=== PATIENT | male | born 1985 | race Caucasian/White ===

== ENCOUNTER → 2019-08-21 10:29 | Outpatient (CLI) | payer BC, SELFPAY ==
[2019-08-21 12:20] LABS: Absolute Lymphocyte Count 2.13 X10^3/uL (0.83-4.51); Absolute Neutrophil Count 3.4 X10^3/uL (2.0-7.7); Basophil# 0.04 X10^3/uL; Basophil% 0.6 % (0-1); Eosinophil# 0.15 X10^3/uL; Eosinophils% 2.4 % (0-5); Hematocrit 48.6 % (40-54); Lymphocyte # 2.13 X10^3/ul (4.0); Lymphocyte % 34.5 % (19-41); Mean Corp Hgb Conc 32.9 g/dL (32-36); Mean Corpuscular Hgb 31.3 pg (27.0-32.0); Mean Corpuscular Volume 94.9 fL (80-94); Mean Platelet Vol. 10.7 fl (6.2-12.0); Monocyte# 0.47 X10^3/uL; Monocyte% 7.6 % (0-10); NRBC Flagged by Analyzer 0 % (0-5); Neutrophil # 3.36 X10^3/uL (2.7-7.7); Neutrophil % 54.6 % (47-70); Platelet Count 231 K/mm3 (150-450); RBC Distribution Width CV 12.2 % (11.6-14.6); RBC Distribution Width SD 42.4 fl (35.1-43.9); Red Blood Count 5.12 M/mm3 (4.6-6.2); White Blood Count 6.2 K/mm3 (4.4-11.0)
[2019-08-21 12:38] LABS: AST(SGOT) 46 U/L (15-37); Alanine Aminotransfer ALT/SGPT 117 U/L (16-61); Albumin, Serum 3.9 g/dL (3.2-5.0); Alkaline Phosphatase 89 U/L (45-117); Anion Gap 5 (5-15); BUN 9 mg/dL (7-18); BUN/Creat Ratio 10.1 RATIO (10-20); Calcium,Total 9.2 mg/dL (8.5-10.1); Chloride 105 mmol/L (98-107); Cholesterol 209 mg/dL (200); Creatinine, Serum 0.89 mg/dL (0.70-1.30); EST Glomerular Filtration Rate 104 mL/min (>60); Est Glom Filt Rate - Afr Amer 125 mL/min (>60); Globulin 3.8 g/dL (2.2-4.2); Glucose 105 mg/dL (74-106); High Density Lipoprotein 44 mg/dL; Protein, Total 7.7 g/dL (6.4-8.2); Sodium Level 138 mmol/L (136-145); Triglycerides 138 mg/dL; Very Low Density Lipoprotein 28 mg/dL (5-40)
== END ==
PROVIDERS: PCP Family Medicine; Referring Provider Family Medicine; Visit Provider Family Medicine
DX: Z00.00 Encounter for general adult medical examination without abnormal findings (principal)
CPT/HCPCS: 36415; 80053; 80061; 85025

== ENCOUNTER → 2019-09-03 12:10 | Outpatient (CLI) | payer BC, SELFPAY | PROVIDERS: PCP Family Medicine; Referring Provider Family Medicine; Visit Provider Family Medicine | DX: G47.10 Hypersomnia, unspecified (principal); R06.83 Snoring | CPT/HCPCS: 95806 ==

== ENCOUNTER → 2019-09-19 | Outpatient (CLI) | payer BC, SELFPAY | END | disposition home or self-care (01) | PROVIDERS: PCP Family Medicine; Referring Provider Family Medicine; Visit Provider Family Medicine | DX: G47.33 Obstructive sleep apnea (adult) (pediatric) (principal) | CPT/HCPCS: 95811 ==

== ENCOUNTER → 2019-10-16 | Outpatient (CLI) | payer BC, SELFPAY | END | disposition home or self-care (01) | LOC: SL 14:19 | PROVIDERS: PCP Family Medicine; Referring Provider Family Medicine; Visit Provider Family Medicine | DX: Z46.89 Encounter for fitting and adjustment of other specified devices (principal) ==

== ENCOUNTER 2021-02-07 20:03 | Emergency (ER) | payer BC, SELFPAY ==
[2021-02-07 20:04] VITALS: BP 138/87; PULSE 110; RESP 18; TEMP 36.3; O2SAT 95; BMI 43.9
--- NOTE | 2021-02-07 20:50 | RAD_ITS ---
STUDY: X-RAY - RIGHT HAND REASON FOR EXAM: Male, 35 years old. injury TECHNIQUE: 3 view(s) of the hand. COMPARISON: None. FINDINGS: An acute oblique fracture is present through the dorsal surface and lateral side of the hamate bone with mild displacement of the small fracture fragment. Mild soft tissue swelling is also present. Small corticated ossicle seen at the base of the metacarpal bone of the thumb. Normal radiocarpal articulation. Normal distal radioulnar joint. Normal remaining visualized carpal bones. Normal carpal articulations Normal carpometacarpal articulation of the thumb. Normal second through fifth carpometacarpal joints. Normal metacarpi. Normal metacarpophalangeal joint of the thumb. Normal interphalangeal joint of the thumb. Normal proximal and distal phalanges of the thumb. Normal metacarpophalangeal joints of the second through fifth fingers. Normal proximal and distal interphalangeal joints of the second through fifth fingers. Normal phalanges of the second through fifth fingers. RAD/Hand Min 3 Views IMPRESSION: 1. An acute oblique fracture is present through the dorsal surface and lateral side of the hamate bone with mild displacement of the small fracture fragment. Electronically Signed: Keyshawn Separs MD at 22:50 EDT , Service support ,
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
== END 2021-02-07 22:20 | disposition home or self-care (01) ==
PROVIDERS: Emergency Provider Emergency Medicine; PCP Family Medicine
DX: S62.141A Displaced fracture of body of hamate [unciform] bone, right wrist, initial encounter for closed fracture (principal); W22.09XA Striking against other stationary object, initial encounter; Y93.89 Activity, other specified; Y92.89 Other specified places as the place of occurrence of the external cause; Y99.8 Other external cause status
CPT/HCPCS: 29125; 73130; 99282

== ENCOUNTER → 2021-02-16 14:39 | Outpatient (CLI) | payer BC, SELFPAY ==
[2021-02-07 20:04] VITALS: BMI 43.9
--- NOTE | 2021-02-16 14:44 | CT_ITS ---
STUDY: CT SCAN RIGHT HAND REASON FOR EXAM: Male, 35 years old. DISP FX HAMATE BONE RADIATION DOSAGE (If Supplied By Facility): CTDIvol = ( 24.58 ) mGy, DLP = ( 683.53 ) mGycm. Individualized dose optimization techniques were used for this CT.? TECHNIQUE: Axial multidetector CT scan of the right hand. Coronal and sagittal reformatted images. COMPARISON: X-ray dated 02/07/2021. FINDINGS: Acute comminuted hamate fracture (coronal images 6 through 14 series 601. Small chip fracture at the fifth metacarpal volar base (axial images 60 and 61 series 3). Tiny chip fracture at the fourth metacarpal with volar base (axial image 62 series 3). Subluxed fourth and fifth metacarpals at the fracture site (sagittal images 54 through 58 10/09/2001). No acute bone destruction. Remainder the visualized carpal bones intact. Distal radius intact. Distal ulna intact. First through third carpals intact. First through fifth digits intact. Soft tissue swelling at the hand. No active bleeding. No significant hematoma formation. CT/Extremity Upper without Contra IMPRESSION: Acute comminuted displaced hamate fracture Small fourth and fifth metacarpal volar base chip fractures with subluxation Hand swelling without active bleeding or hematoma Electronically Signed: Keenan Cotton DO at 10:07 EDT Tel , Service support ,
== END ==
PROVIDERS: PCP Family Medicine; Referring Provider Physician Assistant; Visit Provider Physician Assistant
DX: S62.141A Displaced fracture of body of hamate [unciform] bone, right wrist, initial encounter for closed fracture (principal)
CPT/HCPCS: 73200

== ENCOUNTER 2021-04-04 18:00 | Outpatient (RCR) | payer BC, SELFPAY ==
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
--- NOTE | 2021-08-16 09:35 | HP.OTDCSUM_ITS ---
It has been my pleasure to treat LONG MINER under orders from [employer], for the diagnosis of Closed displaced fx of body of hamate of R wrist for a total of 6 visit(s). Please see the following information for a summary of their discharge status. % Improvement: 75 Objective/Function: right wrist 70/65. right LF MCP 80 left 75. right RF MCP 80 PIP 90. right integrity consultant strength 65# increase from 40 left is 100# pt reports weakness of integrity consultant does not limit him at this time-. therapist advised to continue with HEP to increase integrity consultant strength and in two weeks to initiate more physical labor- to tolerance of pain no greater than 2-3/10 .pt demo understanding- advised to get full release from prior to performing hard physical labor more than 1-2 hours. Patient Goals: Regain Mobility, Regain Strength, Decrease Swelling/Stiffness, Use Hand/Wrist/Arm Normally Again, Increase ROM Goal:: pt will demonstrate an increase in R integrity consultant strength by at least 60# to return to work tasks by d/c. Goal:: Pt will demonstrate an increase in R wrist flexion and extension by at least 25*or both to return to work tasks by d/c. Goal:: pt will demonstrate decrease in edema by 0.5 inches or more to regain ROM by d/c. pt will demonstrate an understanding of proper edema management techniques by d/c. Plan: pt to return to 04/22/21 for x-ray and possible full release Discharge Comments: pt returned to Dr. keaton garrison scheduled pt d/c If there are questions or concerns regarding this patient's occupational therapy, please fell free to call me at [phone]. Thank you for the referra l of this patient. Sincerely, Lily Dillard, OTR/L, CHT
== END 2021-04-04 19:00 | disposition home or self-care (01) ==
LOC: OT 18:00
PROVIDERS: PCP Family Medicine; Visit Provider Student in an Organized Health Care Education/Training Program
DX: S62.141D Displaced fracture of body of hamate [unciform] bone, right wrist, subsequent encounter for fracture with routine healing (principal); S63.06 Subluxation and dislocation of metacarpal (bone), proximal end; X58.XXXD Exposure to other specified factors, subsequent encounter
CPT/HCPCS: 97110; 97140; 97165; 97530

== ENCOUNTER 2022-05-14 20:09 | Emergency (ER) | payer BC, SELFPAY ==
[2022-05-14 20:09] VITALS: BP 124/106; PULSE 142; RESP 15; TEMP 37; O2SAT 94; BMI 39.0
--- NOTE | 2022-05-14 20:34 | CT_ITS ---
STUDY: CT PELVIS WITH CONTRAST REASON FOR EXAM: Male, 36 years old. Ischiorectal abscess. RADIATION DOSAGE (If Supplied By Facility): CTDIvol = ( 28.21 ) mGy, DLP = ( 2520.90 ) mGycm TECHNIQUE: Transaxial imaging of the pelvis was performed without oral contrast. IV 100mL Isovue-370 was administered intravenously. Multiplanar coronal and sagittal images were reformatted. Individualized dose optimization techniques were used for this CT. COMPARISON: None. FINDINGS: Normal urinary bladder. Normal prostate. Normal visualized small intestine. Normal visualized colon. Normal. There is no pelvic fluid. No free air within the abdominal cavity. There is no pelvic lymphadenopathy or mass lesion. Normal visualized pelvic arteries. Small bilateral inguinal hernias of omental fat. The abdominal wall is otherwise unremarkable ischiorectal spaces are unremarkable. There is a small fluid density mass with enhancing rims in the left medial buttock measuring 4.1 x 1.9 x 4.6 cm. There are diffuse degenerative changes of the visualized lumbar spine. CT/Pelvis WITH IV Contrast IMPRESSION: 1. No evidence of ischiorectal abnormality. 2. Small abscess in the medial left buttock. 3. Otherwise normal CT of the pelvis. Electronically Signed: Joel Powell DO at 21:53 EDT Reading Location ID and State: [facility] / ID Tel [phone], Service support ,
--- NOTE | 2022-05-14 20:35 | EKG12_ITS ---
Test Reason : DYSRHYTHMIA Blood Pressure : / mmHG Vent. Rate : 118 BPM Atrial Rate : 118 BPM P-R Int : 130 ms QRS Dur : 092 ms QT Int : 342 ms P-R-T Axes : 034 063 028 degrees QTc Int : 479 ms Sinus tachycardia Otherwise normal ECG Confirmed by MACK STANFORD, MARITO ([id number]), sports editor SHELBIE HANSON ([id number]) on 05/15/2022 9:37:30 AM Referred By: DEV Confirmed By:MARITO GIRON MD
--- NOTE | 2022-05-14 20:51 | EX.ED.DYSGE1 ---
HPI History of Present Illness Chief Complaint: Other, Pain/Inj Detail of Chief Complaint: Pain and swelling right side of rectum Informant: patient and spouse/S.O. Onset/Context/Timing Onset: Days (Onset , May 11) Context: Sudden Onset Timing: Continuous Quality: Pain Location: Left perianal region Current Severity: Mild Maximum Severity: Severe Worsened by: Sitting, bowel movement Relieved by: Nothing Associated Symptoms Associated Symptoms: Fever, chills Narrative Narrative: Patient is a 36-year-old male with no significant past medical history. He does endorse polydipsia and nocturia. There is family history of diabetes. He denies history of diabetes. He denies visual disturbances specifically by ocular blurred vision. He denies pain or swelling of his scrotum. He denies perineal pain. He denies constipation or diarrhea. There is no history of ulcerative colitis or Crohn's disease. He denies headache, visual, ocular auditory symptoms. He denies cardiac or respiratory symptoms. He denies GI symptoms. Prior similar symptoms: No Recent Illness/Hospitalization: No PFSH PFSH Medical History (Updated 05/14/22 @ 22:[address] Scot Groves MD) Abnormal colonoscopy Medical History no medical history no medical history Home Medications amoxicillin 875 mg-potassium clavulanate 125 mg tablet 875 mg PO Q12H #14 TABLETS 05/14/22 [Rx Last Taken Unknown] metformin 500 mg tablet 500 mg PO DAILY #30 tabs 05/14/22 [Rx Last Taken Unknown] oxycodone-acetaminophen 5 mg-325 mg tablet 1 tab PO Q6H PRN PRN Pain 3 days #12 TABLETS 05/14/22 [Rx Last Taken Unknown] Allergy/AdvReac Type Severity Reaction Status Date / Time No Known Allergies Allergy Verified 02/07/21 20:06 Surgical History (Updated 05/14/22 @ 20:[address] Scot Groves MD) S/P colonoscopic polypectomy Social History (Updated 05/14/22 @ 20:[address] Scot Groves MD) household members: spouse and children Smoking Status: Never smoker substance use type: does not use ROS ROS ED Constitutional Constitutional ED: Reports chills, fever(s) and sweats; Denies weight loss Eyes Eyes: Denies blurry vision, change in vision or diplopia ENT ENT ED: Denies ear pain, rhinorrhea or sore throat Cardiovascular Cardiovascular: Denies chest pain or palpitations Respiratory/Chest Respiratory/Chest: Denies cough, dyspnea or dyspnea on exertion Gastrointestinal Gastrointestinal: Denies abdominal pain, constipation, diarrhea, melena, nausea or vomiting Genitourinary Genitourinary ED: Denies dysuria or urinary frequency Musculoskeletal Musculoskeletal: Denies arthralgias, back pain, myalgias or neck pain Integumentary Denies abscess or Abrasions Neurologic Neurologic: Denies headache(s) or weakness Endocrine Endocrinology: Reports polydipsia and polyuria; Denies cold intolerance, heat intolerance or polyphagia Hematologic/Lymphatic Hematologic/Lymphatic: Reports none; Denies anemia, easy bleeding or easy bruising EXAM Physical Exam Const Vital Signs: 05/14/22 20:09 05/14/22 20:17 05/14/22 20:48 Temperature 98.6 F Temperature Source Oral Pulse Rate 142 H Respiratory Rate 15 Respiratory Effort Normal Non-Labored Respiratory Pattern Normal Blood Pressure 124/106 H Blood Pressure Mean 112 Pulse Ox 94 Oxygen Delivery Method Room Air Room Air 05/14/22 20:53 05/14/22 20:54 05/14/22 21:38 Temperature 98.7 F Temperature Source Temporal Pulse Rate 118 H 107 H Respiratory Rate 17 17 Respiratory Effort Respiratory Pattern Blood Pressure 98/64 145/89 H Blood Pressure Mean 75 107 Pulse Ox 96 96 Oxygen Delivery Method Room Air Room Air Room Air Positive well nourished and well developed Constitutional Narrative: Patient is sitting on his right side. He appears uncomfortable. Vital signs are remarkable for heart rate of 142. states he had a temperature at home of 100.2 ?F. General Appearance ED: well developed and pallor; Negative for cyanotic or diaphoretic HEENT Reports dry mucous membranes HEENT Narrative: Head is atraumatic normocephalic. Ears normal. Nares patent. Mucosa is dry. Mouth ED: Yes dry mucous membranes Mouth: dry mucous membranes Eyes PERRL and EOMs intact bilaterally General Eye ED: Negative for pale conjunctiva or scleral icterus Neck no lymphadenopathy, supple and no JVD Chest Wall inspection of chest normal and palpation of chest normal Resp normal respiratory effort and clear to auscultation bilaterally Cardio regular rate, S1 normal heart sound, S2 normal heart sound and no murmurs Rate: tachycardic GI normal to inspection, nondistended, normoactive bowel sounds, non-tender, non-distended and no masses; Negative for hepatosplenomegaly GI Narrative: Patient has fluctuance perianal area. There is no fissures or fistulas noted. There is no hemorrhoids and. Patient has significant discomfort with rectal exam. Prostates normal size and nontender. He does have fluctuance and there is concern for a ischial rectal abscess. Rectal Exam: normal sphincter tone and prostate normal Back/Spine no CVA tenderness Extremity normal to inspection General Extremety ED: Negative for edema or tenderness General Extremity: Negative for edema Neuro oriented x3, CN's II-XII intact bilaterally and no sensory deficits noted Sensorium / Orientation: alert Motor Exam: strength 5/5 throughout Psych mental status grossly normal Skin no rashes or lesions noted, no wounds and skin turgor normal General Skin Exam: pallor; Negative for jaundice MDM MDM MDM Narrative Medical decision making narrative: Concern patient has sepsis due to ischio rectal abscess. CT of the pelvis was ordered with IV contrast. Patient received 1 L of normal saline. CBC, hepatic enzymes, lactate, electrolyte panel and coags were ordered. Blood cultures were ordered prior to administration of piperacillin 4.5 g IV piggyback. Patient was informed he may need to be admitted and may need operative intervention. Lab Data Attestation: I reviewed the patient's lab results. Lab results narrative: CBC and differential unremarkable. Coags are unremarkable. Comprehensive metabolic panel is remarkable for glucose of 270. Patient was informed of results. Patient was informed he has new onset diabetes would explain his polyuria, polydipsia and nocturia. Patient's only abnormal finding is tachycardia. He does not have SIRS or sepsis. Patient was informed that the abscess needs to be incised and drained. He was informed that this is not initial rectal abscess but a subcutaneous abscess. Furthermore there was no evidence of necrotizing fasciitis on the CAT scan. Labs: Laboratory Results - last 24 hr 05/14/22 05/14/22 05/14/22 20:45 20:45 20:45 WBC 6.9 RBC 5.04 Hgb 16.5 Hct 48.3 MCV 95.8 H MCH 32.7 H MCHC 34.2 RDW Std Deviation 40.6 RDW Coeff of Sarahi 11.6 Plt Count 230 MPV 10.3 Immature Gran % (Auto) 0.400 Neut % (Auto) 64.3 Lymph % (Auto) 24.1 [place] % (Auto) 9.3 Eos % (Auto) 1.6 Baso % (Auto) 0.3 Absolute Neuts (auto) 4.4 Absolute Lymphs (auto) 1.66 Nucleated RBC % 0 PT 13.6 INR 1.1 APTT 26.0 Sodium 136 Potassium 3.6 Chloride 101 Carbon Dioxide 25.0 Anion Gap 10 BUN 11 Creatinine 0.98 Estim Creat Clear Calc 109.92 Est GFR (MDRD) Af Amer 111 Est GFR (MDRD) Non-Af 92 BUN/Creatinine Ratio 11.3 Glucose 270 H Lactic Acid Calcium 9.6 Total Bilirubin 1.00 AST 16 ALT 47 Alkaline Phosphatase 108 Total Protein 8.4 H Albumin 3.7 Globulin 4.7 H Albumin/Globulin Ratio 0.8 L 05/14/22 20:45 WBC RBC Hgb Hct MCV MCH MCHC RDW Std Deviation RDW Coeff of Sarahi Plt Count MPV Immature Gran % (Auto) Neut % (Auto) Lymph % (Auto) [place] % (Auto) Eos % (Auto) Baso % (Auto) Absolute Neuts (auto) Absolute Lymphs (auto) Nucleated RBC % PT INR APTT Sodium Potassium Chloride Carbon Dioxide Anion Gap BUN Creatinine Estim Creat Clear Calc Est GFR (MDRD) Af Amer Est GFR (MDRD) Non-Af BUN/Creatinine Ratio Glucose Lactic Acid 1.3 Calcium Total Bilirubin AST ALT Alkaline Phosphatase Total Protein Albumin Globulin Albumin/Globulin Ratio Radiography Diagnostic Testing: Clinical Impression(s) from Imaging Studies Pelvis CT 05/14/22 20:34 IMPRESSION: 1. No evidence of ischiorectal abnormality. 2. Small abscess in the medial left buttock. 3. Otherwise normal CT of the pelvis. Electronically Signed: Joel Powell DO at 21:53 EDT Reading Location ID and State: [address] [place] [address] Tel [phone], Service support , Rhythm Strip Rhythm Strip: Sinus Tach Rate: 132 Ectopy: None EKG Initial EKG: Attestation: I personally reviewed and interpreted this EKG as follows: Interpretation: Sinus Tachycardia (Ventricular rate is 118. Other than sinus tachycardia the EKG is normal. PA interval is 130 ms. QS duration 92 ms. QT duration 342 ms. Galliano is normal) Procedures Other Procedures Procedure(s): Incision and drainage of left buttocks abscess. Patient signed consent. He was explained risk benefits. Patient was prepped a sterile manner. There is no signs wound site lidocaine by local filtration field block. Incision was made with a 10 blade. 2 cm incision was made. There was bloody brown purulent drainage noted. Blunt loculation was undertaken with more bloody brown odiferous fluid. Cavity was irrigated. Half inch iodoform gauze was placed as a wick. Patient tolerated procedure. He did have 1 or 2 episodes of discomfort. Plan is to discharge with prescription for Augmentin and pain medicine referral to Dr. Hernandez. Discharge Plan Triage Chief Complaint: Other, Pain/Inj ED Provider: Scot Groves Dx/Rx/DC Orders Clinical Impression: Abscess of buttock, left, Sinus tachycardia, New onset type 2 diabetes mellitus, Elevated blood pressure reading Instructions: ED Abscess Incision And Drainage, ED Diabetic Hyperglycemia, ED Hypertension, To Be Confirmed Prescriptions: New oxycodone-acetaminophen [oxycodone-acetaminophen] 5-325 mg tablet 1 tab PO Q6H PRN PRN (Reason: Pain) 3 Days Qty: 12 0RF amoxicillin-pot clavulanate [amoxicillin-pot clavulanate] 875-125 mg tablet 875 mg PO Q12H Qty: 14 0RF metformin 500 mg tablet 500 mg PO DAILY Qty: 30 0RF Primary Care Provider: Cal San Referrals: Weston Hernandez MD [Med Staff - Active Staff] - 2 Days for wound check Cal San DO [Primary Care Provider] - 3-5 Days Activity Restrictions/Additional Instructions: Take medication as prescribed. Contact Dr. Hernandez's office in the morning for follow-up in the next [address] Cal San's office for follow-up for diabetic education and continued care Disposition Disposition: Home, Self Care
[2022-05-14 20:53] VITALS: BP 98/64; PULSE 118; RESP 17
[2022-05-14 20:54] VITALS: O2SAT 96
[2022-05-14 21:02] LABS: Absolute Lymphocyte Count 1.66 X10^3/uL (0.83-4.51); Absolute Neutrophil Count 4.4 X10^3/uL (2.0-7.7); Basophil# 0.02 X10^3/uL; Basophil% 0.3 % (0-1); Eosinophil# 0.11 X10^3/uL; Eosinophils% 1.6 % (0-5); Hematocrit 48.3 % (40-54); Hemoglobin 16.5 g/dL (13.0-16.5); Lymphocyte # 1.66 X10^3/ul (0.83-4.51); Lymphocyte % 24.1 % (19-41); Mean Corp Hgb Conc 34.2 g/dL (32-36); Mean Corpuscular Hgb 32.7 pg (27.0-32.0); Mean Corpuscular Volume 95.8 fL (80-94); Mean Platelet Vol. 10.3 fl (6.2-12.0); Monocyte# 0.64 X10^3/uL; Monocyte% 9.3 % (0-10); NRBC Flagged by Analyzer 0 % (0-5); Neutrophil # 4.43 X10^3/uL (2.7-7.7); Neutrophil % 64.3 % (47-70); Platelet Count 230 K/mm3 (150-450); RBC Distribution Width CV 11.6 % (11.6-14.6); RBC Distribution Width SD 40.6 fl (35.1-43.9); Red Blood Count 5.04 M/mm3 (4.6-6.2); White Blood Count 6.9 K/mm3 (4.4-11.0)
[2022-05-14 21:06] LABS: International Normalized Ratio 1.1; Prothrombin Time (Protime)PT. 13.6 SECONDS (11.7-14.9)
[2022-05-14 21:13] LABS: ALB/GLOB Ratio 0.8 RATIO (0.9-2.4); AST(SGOT) 16 U/L (15-37); Alanine Aminotransfer ALT/SGPT 47 U/L (16-61); Albumin, Serum 3.7 g/dL (3.2-5.0); Alkaline Phosphatase 108 U/L (45-117); Anion Gap 10 (5-15); BUN 11 mg/dL (7-18); BUN/Creat Ratio 11.3 RATIO (10-20); Calcium,Total 9.6 mg/dL (8.5-10.1); Chloride 101 mmol/L (98-107); Creatinine, Serum 0.98 mg/dL (0.70-1.30); EST Glomerular Filtration Rate 92 mL/min (>60); Est Glom Filt Rate - Afr Amer 111 mL/min (>60); Estimated Creatinine Clearance 109.92 ml/min; Globulin 4.7 g/dL (2.2-4.2); Glucose 270 mg/dL (74-106); Potassium 3.6 mmol/L (3.5-5.1); Protein, Total 8.4 g/dL (6.4-8.2); Sodium Level 136 mmol/L (136-145)
[2022-05-14 21:16] LABS: Lactic Acid 1.3 mmol/L (0.4-1.9)
[2022-05-14 21:38] VITALS: BP 145/89; PULSE 107; RESP 17; TEMP 37.1; O2SAT 96
[2022-05-14] MEDS: Lidocaine 1% (20 ml mdv) 20 ML Vial INFILT (22:13)
[2022-05-14 23:02] VITALS: BP 145/78; PULSE 112; RESP 18; O2SAT 95
== END 2022-05-14 23:35 | disposition home or self-care (01) ==
PROVIDERS: Emergency Provider Emergency Medicine; PCP Family Medicine; Visit Provider Emergency Medicine
DX: L02.31 Cutaneous abscess of buttock (principal); E11.9 Type 2 diabetes mellitus without complications; R03.0 Elevated blood-pressure reading, without diagnosis of hypertension; R63.1 Polydipsia; R35.89 Other polyuria; R35.1 Nocturia
CPT/HCPCS: 10060; 72193; 80053; 83605; 85025; 85610; 85730; 87040; 93005; 96365; 99284; J7030; J7050; Q9967; A4216

== ENCOUNTER → 2022-09-18 | Outpatient (CLI) | payer OTHER, SELFPAY ==
[2022-09-18 18:22] LABS: Cholesterol 207 mg/dL (200); High Density Lipoprotein 57 mg/dL; Triglycerides 125 mg/dL; Very Low Density Lipoprotein 25 mg/dL (5-40)
[2022-09-18 18:40] LABS: Microalbumin,Random Urine 11.5 mg/L (NO RANGE EST.); Microalbumin:Creatinine Ratio 4.9 mg/g CRE (<30 mg/g CRE)
[2022-09-18 18:46] LABS: Hemoglobin A1c 5.9 % (3.8-5.6)
== END | disposition home or self-care (01) ==
PROVIDERS: PCP Family Medicine; Visit Provider Family Medicine
DX: Z00.00 Encounter for general adult medical examination without abnormal findings (principal); E11.9 Type 2 diabetes mellitus without complications
CPT/HCPCS: 36415; 80061; 82043; 82570; 83036

== ENCOUNTER 2023-03-24 21:36 | Emergency (ER) | payer OTHER, SELFPAY ==
[2023-03-24 21:37] VITALS: BP 148/105; PULSE 116; RESP 16; TEMP 36.6; O2SAT 97; BMI 36.3
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
[2023-03-24] MEDS: Lidocaine 1% /Epi 1:100 (20ml) 20 ML Vial INFILT (22:20)
[2023-03-24] MEDS: Cefazolin 1 GM/5 ML Vial IM (22:20)
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
[2023-03-25 01:52] VITALS: RESP 16
== END 2023-03-25 02:01 | disposition home or self-care (01) ==
PROVIDERS: Emergency Provider Emergency Medicine; PCP Family Medicine; Visit Provider Emergency Medicine
DX: S81.812A Laceration without foreign body, left lower leg, initial encounter (principal); E11.9 Type 2 diabetes mellitus without complications; S50.811A Abrasion of right forearm, initial encounter; S81.012A Laceration without foreign body, left knee, initial encounter; V28.49XA Other motorcycle driver injured in noncollision transport accident in traffic accident, initial encounter
CPT/HCPCS: 13121; 13122 ×2; 12001; 73590; 96372; 99284

== ENCOUNTER → 2025-02-05 | Outpatient (CLI) | payer OTHER, SELFPAY ==
[2025-02-05 18:34] LABS: AST(SGOT) 38 U/L (<=37); Alanine Aminotransfer ALT/SGPT 68 U/L (<=46); Albumin, Serum 4.2 g/dL (3.5-5.0); Alkaline Phosphatase 83 U/L (40-129); Anion Gap 12 (5-15); BUN 15 mg/dL (4-19); BUN/Creat Ratio 17.4 RATIO (10-20); Calcium,Total 9.2 mg/dL (7.6-11.0); Carbon Dioxide 20.6 mmol/L (21.0-32.0); Chloride 106 mmol/L (98-108); Cholesterol 166 mg/dL (<=200); Globulin 2.9 g/dL (2.2-4.2); Glucose 114 mg/dL (70-99); Low Density Lipoprotein Calc. 109 mg/dL; Potassium 4.2 mmol/L (3.3-5.1); Triglycerides 97 mg/dL; Very Low Density Lipoprotein 19 mg/dL (5-40); cholesterol:hdl ratio screen 4.38
== END | disposition home or self-care (01) ==
PROVIDERS: PCP Family Medicine; Visit Provider Family Medicine
DX: Z00.00 Encounter for general adult medical examination without abnormal findings (principal); R73.03 Prediabetes
CPT/HCPCS: 36415; 80053; 80061; 83036